=== PATIENT | male | born 1985 | race American Indian/Alaskan Native ===

== ENCOUNTER 2020-01-01 06:36 | Emergency (ER) | payer SELFPAY ==
[2020-01-01 07:22] VITALS: BP 132/86
[2020-01-01] MEDS ORDERED: NEOMY 3.5 MG/BACIT 400 UNITS/POLY B 5000 UNITS/GM OINT PACKET TP ONE (09:30)
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
== END 2020-01-01 10:02 | disposition home or self-care (01) ==
LOC: ED 06:36
DX: S80.811A Abrasion, right lower leg, initial encounter (principal); V49.49XA Driver injured in collision with other motor vehicles in traffic accident, initial encounter; Y93.89 Activity, other specified; Y92.410 Unspecified street and highway as the place of occurrence of the external cause; Y99.8 Other external cause status
CPT/HCPCS: A6250